=== PATIENT | female | born 1970 | race Caucasian/White ===

== ENCOUNTER → 2016-10-14 | Outpatient (CLI) | payer BC ==
[~2016-10-14] MED LIST: CELEXA20 MG PO; DIOVAN HCT 320/1 TA1 PO; ESTRACE PO; GLUCOPHAGE500 MG PO; NEXIUM PO; SINGULAIR PO; ZONEGRAN100 MG PO; ZYRTEC PO
--- NOTE | ~2016-10-14 | MY6 ---
[facility] A Service of [facility] & [facility] RADIOLOGY TEXT RESULTS PATIENT: ANKUSH EM LOCATION: [facility] : [birth year] UNIT #: [id number] AGE: [address]: BELKIS ADAMS MD SEX: F ORDER DR: [id number] [facility] [address] [place], [place] [address] [id number] O MR#: [id number] Acc #: [id number] NAME: ANKUSH EM. : 1970 SEX: F STUDY DATE/TIME: 10/14/2016 16:12 UNIT: [facility] ROOM: STUDY DESCRIPTION: MY Mammogram Dx Dig Robert Attending Physician: Belkis Adams M.D. Referring Physician: Belkis Adams M.D. Ordering Physician: Belkis Adams M.D. Primary Care Physician: Gomez Berrios M.D. MEDICAL IMAGING REPORT This report is preliminary unless electronic signature is present EXAM Diagnostic mammogram, 10/14 INDICATIONS 46-year-old with no personal history but a positive family history of breast cancer. Patient feels a right side breast nodule in the upper outer quadrant for about 1 month. FINDINGS Digital CC and MLO views of both breasts were obtained. Additionally, right true lateral view was obtained in addition to right spot compression CC and MLO views. Study is reviewed with an FDA-approved CAD device. Comparison is made with 07/05/2014 and 08/10/2012. Breast parenchyma shows scattered fibroglandular densities. No masses or suspicious microcalcifications are seen. There are benign calcifications in both breasts, which are stable. IMPRESSION Mammogram is benign. Ultrasound of the right breast in the area of palpable clinical concern is needed. As this exam was performed after hours as an add on, pit clerk was not available at the time the patient was in the department. The patient will return for additional sonographic imaging of the right breast. Patients over the age of 40 are entered into a reminder system with target due date for the next mammogram. A result letter will also be sent to the patient. BIRADS: 0 Need Additional Imaging Evaluation and/or Prior Mammograms For Evaluation [facility]. [facility] A Service of [facility] & [facility] RADIOLOGY TEXT RESULTS PATIENT: ANKUSH EM LOCATION: [facility] : [birth year] UNIT #: [id number] AGE: [address]: BELKIS ADAMS MD SEX: F ORDER DR: Dictated by... Zion Lane Jr., M.D. THIS IS AN ELECTRONICALLY VERIFIED REPORT Zion Lane Jr., M.D. at 10/15/2016 7:24 AM BERNIE/deshawn TD: 10/14/2016 19:41 JOB #: [id number] MEDICAL IMAGING REPORT Page 1 of 1 COPY
== END | disposition home or self-care (01) ==
LOC: CWCC 15:54
DX: N63 Unspecified lump in breast (principal)
CPT/HCPCS: G0204